=== PATIENT | male | born 2000 | race Caucasian/White ===

== ENCOUNTER 2023-02-22 15:32 | Emergency (ER) | payer OTHER ==
[~2023-02-22] VITALS: Ht 177.8 cm; Wt 86.2 kg
--- NOTE | 2023-02-22 15:46 | NUR ---
[email or web address], medical screening exam in progress
[2023-02-22] MEDS ORDERED: IV NORMAL SALINE 500 ML BAG IV ONE (16:00)
[2023-02-22] MEDS ORDERED: METOCLOPRAMIDE HCL 10 MG/2 ML VIAL IV ONE (16:00)
[2023-02-22] MEDS ORDERED: KETOROLAC TROMETHAMINE 15 MG INJ IVP ONE (16:00)
[2023-02-22] MEDS ORDERED: ACETAMINOPHEN 325 MG TABLET PO ONE (16:00)
[2023-02-22] MEDS ORDERED: ACETAMINOPHEN 325 MG TABLET ONE (16:06)
[2023-02-22] MEDS ORDERED: METOCLOPRAMIDE HCL 10 MG/2 ML VIAL ONE (16:06)
[2023-02-22] MEDS ORDERED: KETOROLAC TROMETHAMINE 15 MG INJ ONE ×2 (16:06→16:14)
[2023-02-22 16:42] LABS: HEMATOCRIT 43.1 % (36.7-47.1); MEAN CORPUSCULAR VOLUME 86.5 fL (73.0-96.2); PLATELET COUNT (AUTO) 173 K/uL (152-348)
[2023-02-22 16:52] LABS: BILIRUBIN,TOTAL 0.6 mg/dL (0.2-1.0); CREATININE 0.9 mg/dL (0.6-1.3); POTASSIUM 3.8 mmol/L (3.5-5.1); TOTAL PROTEIN, SERUM 7.8 g/dL (6.4-8.2)
[2023-02-22 17:17] VITALS: BP 119/70; O2SAT 99
--- NOTE | 2023-02-22 17:17 | NUR ---
IV removed. Catheter intact and site benign. Pressure and 4x4 gauze applied to site. No bleeding noted. Patient discharged to home by Dr Suggs in stable condition with brisk steady gait. Written and verbal after care instructions given to patient and close friend. Patient verbalized understanding and compliance of instructions. Stressed follow up with primary doctor and neurologist or return to ER for worsening s/s.
== END 2023-02-22 17:17 | disposition home or self-care (01) ==
LOC: ER 15:40
DX: G43.909 Migraine, unspecified, not intractable, without status migrainosus (principal); E86.0 Dehydration; R42 Dizziness and giddiness; F17.210 Nicotine dependence, cigarettes, uncomplicated
CPT/HCPCS: 99285; 96374; 70450; 96361; 96375; 80053; 85025; 84484; 36415; 93005; J1885 ×2; J2765; J7040; A4663